=== PATIENT | female | born 1955 | race Caucasian/White ===

== ENCOUNTER → 2020-02-24 10:53 | Outpatient (CLI) | payer MEDICARE, SELFPAY ==
[2016-08-07 12:37] VITALS: BMI 25.0
--- NOTE | 2020-02-24 10:59 | RAD_ITS ---
STUDY: X-RAY - LUMBAR SPINE REASON FOR EXAM: Female, 65 years old. Back pain running down left leg, surgery x6 years ago. TECHNIQUE: 3 view(s) of the lumbar spine were obtained. COMPARISON: None FINDINGS: Normal lumbar lordosis. Mild dextro scoliosis of the lower lumbar spine. Status post transpedicular fixation at L5/S1 with 5 mm of anterolisthesis of L5 on S1. There is multilevel endplate spondylosis of the lumbar vertebrae. There is multi-level degenerative disc disease with multi-level disc space narrowing. The soft tissue structures are unremarkable. RAD/Lumbar Spine 2 or 3 Views IMPRESSION: 1. Status post transpedicular fixation at L5/S1 with 5 mm of anterolisthesis of L5 on S1. 2. Mild dextroscoliosis with degenerative disc disease.. Electronically Signed: Skyler Barbosa MD at 16:58 EST Tel , Service support ,
== END ==
PROVIDERS: Referring Provider Anesthesiology Pain Medicine; Visit Provider Anesthesiology Pain Medicine
DX: M54.9 Dorsalgia, unspecified (principal)
CPT/HCPCS: 72100

== ENCOUNTER → 2020-03-31 11:15 | Outpatient (CLI) | payer MEDICARE, SELFPAY ==
[2016-08-07 12:37] VITALS: BMI 25.0
[2020-03-31 13:07] LABS: Amphetamine Urine VISTA NEGATIVE (<1000 ng/mL); Barbiturate Urine VISTA NEGATIVE (< 200 ng/mL); Benzodiazepine Urine VISTA NEGATIVE (< 200 ng/mL); Cocaine Urine VISTA NEGATIVE (< 300 ng/mL); Ecstacy Urine VISTA NEGATIVE (< 500 ng/mL); Methadone Urine VISTA NEGATIVE (< 300 ng/mL); PCP Urine VISTA NEGATIVE (< 25 ng/mL); THC Urine VISTA NEGATIVE (< 50 ng/mL); Vista UDS pH Range 5
== END ==
PROVIDERS: PCP Family Medicine; Referring Provider Anesthesiology Pain Medicine; Visit Provider Anesthesiology Pain Medicine
DX: F11.20 Opioid dependence, uncomplicated (principal)
CPT/HCPCS: 80307

== ENCOUNTER → 2020-08-18 07:57 | Outpatient (CLI) | payer MEDICARE, SELFPAY ==
--- NOTE | 2020-08-18 08:02 | CT_ITS ---
STUDY: CT LUMBAR SPINE WITHOUT CONTRAST REASON FOR EXAM: Female, 65 years old. BACK AND LEG PAIN RADIATION DOSAGE (If Supplied By Facility): CTDIvol = ( 11.51 ) mGy, DLP = ( 265.53 ) mGycm TECHNIQUE: The patient was scanned in a multi detector CT scanner. High resolution transaxial imaging was performed. Images were obtained from L1 to S1 vertebral level. Sagittal and coronal images were reconstructed. Individualized dose optimization techniques were used for this CT. COMPARISON: None FINDINGS: Normal lumbar lordosis. There is no substantial scoliosis. Normal vertebrae of the lumbar spine. L1-2: Mild degree of anterior spondylosis. The disc spaces well maintained. L2-3: Moderate to marked degree of disc space narrowing. Spondylosis. Facet joint osteoarthritis and hypertrophy. Moderate degree of bilateral neural foraminal stenosis worse on the left side. Mild degree of central canal stenosis. Minimal retrolisthesis of L2 on L3. L3-4: Marked degree of disc space narrowing. Spondylosis. Mild degree of diffuse posterior disc bulge. No significant stenosis seen. L4-5: Minimal anterior listhesis of L4 on L5. L5-S1: The patient is status post laminectomy and interpedicular screw and eleazar fixation device. Minimal degree of anterior listhesis of L5 on S1. Normal visualized paraspinous soft tissue structures. CT/Spine Lumbar without Contrast IMPRESSION: Multilevel degenerative changes, as described above. Postoperative changes at the L5-S1 level. Electronically Signed: Adriano Interiano MD at 14:30 EDT , Service support ,
== END ==
PROVIDERS: PCP Family Medicine; Referring Provider Anesthesiology Pain Medicine; Visit Provider Anesthesiology Pain Medicine
DX: M54.5 Low back pain (principal); M54.16 Radiculopathy, lumbar region
CPT/HCPCS: 72131

== ENCOUNTER → 2020-11-05 11:34 | Outpatient (CLI) | payer MEDICARE, SELFPAY ==
[2020-10-12 14:07] VITALS: BMI 21.4
--- NOTE | 2020-11-05 11:36 | RAD_ITS ---
PROCEDURE: LUMBAR MYELOGRAM DATE OF EXAMINATION: 11/05/2020. INDICATION: Female, 65 years old. Increasing low back pain with radiation to the lower extremities. Prior laminectomy and fusion at the L5-S1 level. PHYSICIAN: Adriano Interiano M.D. CONSENT: The patient''s history and physical findings were reviewed. The lumbar myelogram procedure was discussed with the patient prior to signing a consent. SEDATION: Local anesthesia with 3 mL of 1% lidocaine was used. FLUOROSCOPY TIME (if supplied): (1:23) minutes/seconds. Injection Information: 10 cc of ISOVUE-M 200. Number of images obtained: 4 TECHNIQUE: Digital fluoroscopy was used to identify a safe approach for the lumbar myelogram. The back was prepped and draped in usual fashion. Local anesthesia was utilized. Under fluoroscopic guidance a 22-gauge spinal needle was inserted into the spinal canal at the L4-5 level. Clear spinal fluid was seen. 10 mL of Isovue 200 M was injected into the spinal canal. There is good opacification of the spinal fluid. The nerve root sheaths are asymmetrically identified. Extradural defects are seen at the L2-L3, L3-L4 and L4-L5 levels. Minimal retrolisthesis of L2 on L3 and L3 on L4. There is narrowing of the AP diameter of the canal. A spinal stimulator device is seen overlying the left lower aspect of the lumbar spine. Prior laminectomy and intrapedicle screw fixation at the L5-S1 level. A CT scan will follow. RAD/Lumbar Myelogram IMPRESSION: Successful lumbar myelogram with multilevel extradural defects as described. Electronically Signed: Adriano Interiano MD at 12:44 EDT , Service support ,
[2020-11-05 11:52] VITALS: BP 163/87; PULSE 69; RESP 14; TEMP 36.3; O2SAT 100; BMI 21.9
[2020-11-05] MEDS: Lidocaine 2% (5ml sdv) 5 ML VIAL.MPF (12:15)
--- NOTE | 2020-11-05 13:22 | CT_ITS ---
STUDY: CT LUMBAR SPINE WITH INTRATHECAL CONTRAST (LUMBAR CT MYELOGRAM) REASON FOR EXAM: Female, [address] LUMBAR MYELOGRAM RADIATION DOSAGE (If Supplied By Facility): CTDIvol = ( 11.88 ) mGy, DLP = ( 372.05 ) mGycm TECHNIQUE: Transaxial images were obtained from the L1 vertebra through the S1 vertebrae, following intrathecal administration of 10 ml of ISOVUE-M 200 contrast material, performed by Dr. Interiano. Please refer to this physicians technical notes for procedural details. Coronal and sagittal reconstructions were obtained. Individualized dose optimization techniques were used for this CT. COMPARISON: Comparison is made with prior examination dated 08/18/2020. FINDINGS: Normal lumbar lordosis. There is no substantial scoliosis. The TENS unit is seen. Normal vertebrae of the lumbar spine. There is dependent layering of contrast material in the distal thecal sac. The conus medullaris terminates in a normal position at the T12-L1 vertebral level. There is no demonstrated cauda equina nerve root abnormality or intraspinal mass. L1-2: Mild degree of anterior spondylolisthesis. The disc spaces well-maintained. No evidence of the spinal stenosis. No evidence of herniated nucleus pulposus. L2-3: Moderate to marked in degree of disc space narrowing. Minimal retrolisthesis of L2 on L3. Spondylosis. Mild degree of the diffuse posterior disc bulge. Minimal narrowing of the intervertebral foramina worse on the left side. L3-4: Mild degree of disc space narrowing. Anterior spondylosis. Facet joint hypertrophy. Mild degree of right neural foraminal stenosis. L4-5: Minimal anterior listhesis of L4 on L5. No significant disc space narrowing is seen. Mild with anterior spondylosis. L5-S1: Interpedicular screw fixation at the L5-S1 level. Laminectomy. Moderate degree of disc space narrowing. Normal visualized sacroiliac joints. Normal visualized paraspinous soft tissue structures. CT/Spine Lumbar WITH Contrast IMPRESSION: Multilevel disc space narrowing and degenerative changes as described. Prior laminectomy and fusion at the L5-S1 level. Electronically Signed: Adriano Interiano MD at 14:28 EDT , Service support ,
[2020-11-05 13:33] VITALS: BP 131/67; PULSE 73; RESP 14; O2SAT 99
== END | disposition home or self-care (01) ==
LOC: RAD 11:35
PROVIDERS: PCP Student in an Organized Health Care Education/Training Program; Referring Provider Orthopaedic Surgery; Visit Provider Orthopaedic Surgery
DX: M48.061 Spinal stenosis, lumbar region without neurogenic claudication (principal)
CPT/HCPCS: 62304; 72132; Q9967; A9575

== ENCOUNTER 2020-12-29 11:41 | Observation (INO) | payer MEDICARE, SELFPAY ==
--- NOTE | 2020-12-21 11:14 | EKG12_ITS ---
Test Reason : PRE OP Blood Pressure : / mmHG Vent. Rate : 068 BPM Atrial Rate : 068 BPM P-R Int : 148 ms QRS Dur : 072 ms QT Int : 370 ms P-R-T Axes : 072 060 066 degrees QTc Int : 393 ms Normal sinus rhythm Normal ECG Confirmed by CARMELO RIVERA, KARUNA ([id number]), supervising editor news reel JAIME NOVAK ([id number]) on 12/28/2020 12:35:22 PM Referred By: Cam Whalen Confirmed By:GISSELLE RHODES MD
[2020-12-21 12:37] LABS: Absolute Neutrophil Count 5.9 X10^3/uL (2.0-7.7); Basophil# 0.06 X10^3/uL; Basophil% 0.7 % (0-1); Eosinophil# 0.16 X10^3/uL; Eosinophils% 1.8 % (0-5); Hematocrit 42.4 % (37-47); Hemoglobin 13.9 g/dL (12.0-15.0); Lymphocyte % 23.4 % (19-41); Mean Corp Hgb Conc 32.8 g/dL (32-36); Mean Corpuscular Hgb 31.2 pg (27.0-32.0); Mean Corpuscular Volume 95.1 fL (81-99); Monocyte# 0.66 X10^3/uL; Monocyte% 7.4 % (0-10); NRBC Flagged by Analyzer 0 % (0-5); Neutrophil # 5.94 X10^3/uL (2.7-7.7); Neutrophil % 66.3 % (47-70); Platelet Count 428 K/mm3 (150-450); RBC Distribution Width CV 13.1 % (11.6-14.6); RBC Distribution Width SD 45.7 fl (35.1-43.9); Red Blood Count 4.46 M/mm3 (4.2-5.4)
[2020-12-21 12:49] LABS: Prothrombin Time (Protime)PT. 12.3 SECONDS (11.7-14.9)
[2020-12-21 12:50] LABS: Partial Thromboplast Time 28.9 Seconds (24.1-36.2)
[2020-12-21 13:01] LABS: Anion Gap 7 (5-15); BUN 13 mg/dL (7-18); BUN/Creat Ratio 15.6 RATIO (10-20); Calcium,Total 9.2 mg/dL (8.5-10.1); Chloride 105 mmol/L (98-107); Creatinine, Serum 0.83 mg/dL (0.55-1.02); EST Glomerular Filtration Rate 73 mL/min (>60); Est Glom Filt Rate - Afr Amer 88 mL/min (>60); Glucose 94 mg/dL (74-106); Potassium 3.6 mmol/L (3.5-5.1); Sodium Level 139 mmol/L (136-145)
[2020-12-21 13:03] LABS: AST(SGOT) 9 U/L (15-37); Alanine Aminotransfer ALT/SGPT 17 U/L (13-56); Albumin, Serum 3.5 g/dL (3.2-5.0); Alkaline Phosphatase 73 U/L (45-117); Globulin 3.6 g/dL (2.2-4.2); Magnesium 2.3 mg/dL (1.6-2.6); Protein, Total 7.1 g/dL (6.4-8.2)
[2020-12-21 13:39] LABS: HIV - WCH Non-Reactive (Nonreactive); Hepatitis B Surface Antibody Non-Reactive; Hepatitis C Antibody Non-Reactive (Nonreactive)
[2020-12-23 14:48] LABS: Hepatitis A AB, Total Positive (Negative)
--- NOTE | 2020-12-28 15:45 | PCM.HP.BLA ---
History and Physical Date of Admission: 12/29/20 [facility] [id number] [phone] OFFICE VISITDate of Service: 10/02/20 MR#:[id number]:[id number]: YNES FLORES #:[id number]:[id number] Provider:Dr. Cam Whalen DOAge/Sex: 65/F Location:[place]:Signed Intake Vital Signs 10/02/20 08:07 Height 5 ft 4 in Weight: 125 lb BMI 21.4 Intake Visit Reasons: Lumbar spine Accompanied by: Self Is patient in pain?: Yes Pain scale (1-10): 8 Allergies No Known Allergies Allergy (Verified 10/02/20 08:38) Medications lovastatin 40 mg tablet 40 mg PO DAILY tab 10/02/20 [History Confirmed 10/02/20] metoprolol succinate 25 mg tablet,extended release 24 hr 25 mg PO DAILY tab 10/02/20 [History Confirmed 10/02/20] nifedipine 30 mg tablet,extended release 24 hr 30 mg PO DAILY tab 10/02/20 [History Confirmed 10/02/20] oxycodone-acetaminophen 5 mg-325 mg tablet 1 tab PO Q6H PRN tab 10/02/20 [History Confirmed 10/02/20] ropinirole 0.25 mg tablet 0.25 mg PO DAILY 10/02/20 [History Confirmed 10/02/20] Post menopausal: Yes PFSH Medical History (Updated 10/02/20 @ 09:[address] Cam Whalen DO) HTN (hypertension) Hyperlipidemia Surgical History (Updated 10/02/20 @ 08:44 by Suzie Munroe) History of lumbar surgery Family History (Updated 10/02/20 @ 08:46 by Suzie Munroe) Other No family history of disorders Social History household members: children housing: house Smoking Status: Never smoker alcohol intake: never what type of physical activity do you participate in: none do you feel safe at home: Yes HPI Lumbar spine Details: Parts of this documentation were recorded by a scribe, this documentation accurately reflects the service provided and the decisions made by me, Dr. Cam Whalen DO 10/02/20 0806. YNES FLORES is a 65 year old F here today to establish as a new patient. C/o lumbar pain. Patient was referred by Dr. Schaefer for lumbar pain with radiculopathy. Onset: 2013. Patient had surgery in [place] by Dr. Ross, eleazar was placed in her lower back. Pain is across her lumbar with radiculopathy with her right leg. Patient had a stimulatory placed in 2015. Patient states she does not use it now. Patient moved to [place] last year. Reach, bend or lifting will cause shooting pains with either right or left leg. Patient voiced her radiculopathy always used to affected her left leg. However, now is with her right. Patient had done physical therapy in the past, however worsened her pain. Patient has done injections with Dr. Schaefer, however the last injection did not help. Denies any issues with bowel movements. Patient has tried the following conservative treatments for six weeks or greater: RICE, OTC NSAIDs, home exercises provided by a provider, corticosteroid injections and oral corticosteroids, narcotic and non-narcotic analgesic medication(s), PT/OT, interventional pain procedures and pain management techniques. Patient has found no relief and would like to further investigate their s/s. Therefore, will order a(n) [TEST/STUDY] to appropriately determine if [tx/sx] would be appropriate for the pa Ynes is a most pleasant young lady 65 years old has chief complaint of low back pain. She also has bilateral leg pain perhaps worse on the left. Her history is well described above. Overall the pain is usually a 7 or an 8 and when it is bad it is a 9. The dorsal column stimulator that was put in is a Medtronic unit. It did not help her. Incidentally she had left leg pain before the surgery and it did help her left leg pain. On examination she can stand her toes and she can stand on her heels without difficulty. She can forward bend very far without hardly any pain. She has a little pain with extension of her lumbar spine. She has 1+ patellar reflexes bilaterally and 1+ Achilles reflexes bilaterally. She has no long tract signs. Clonus is absent Babinski's are downgoing. She has no muscle atrophy. Plain x-rays of her back demonstrate the pedicle fixation at L5-S1. In addition she has degeneration of the disks above the fusion. I reviewed plain the CT scan that was done and these of course are always hard to read regarding up in particular stenosis is hard to tell what soft tissue is what. I told her that we would consider removal of the dorsal column stimulator however removal of the wires is another issue. That way she could have an MRI scan. In the end if we can get an MRI scan we will do a lumbar myelogram CT. I will see her again on Monday. I am going to discussed the case with Dr. Jesse Ruiz in [place] who is very experienced with Medtronic dorsal column stimulator's. ROS [employer] Reports system reviewed and no additional complaints, except as documented, Reports as per HPI, Reports back pain, Reports numbness, Reports radiating pain into limb, Reports stiffness and Reports tingling Neuro Yes numbness and Yes tingling Ortho Exam General General: Yes no acute distress and Yes well groomed Neurologic: Yes alert and Yes oriented x3 Psychologic: Yes reasonable and appropriate Coding Level of Care Code Off vis,new,level 3 Diagnoses History of lumbar surgery Z98.890 Spinal stenosis at L4-L5 level M48.061 Time Spent (min) 30 Assessment and Plan Assessment and Plan (1) History of lumbar surgery: Status: Acute Comment: [place] by Dr. Ross (2) Spinal stenosis at L4-L5 ramonita
[2020-12-29] VITALS (16 sets, daily range): BP systolic 92–143; BP diastolic 52–88; PULSE 61–80; RESP 16–18; TEMP 36.1–37.1; O2SAT 92–100; BMI 22.9
[2020-12-29] MEDS: Acetaminophen 500 MG Tablet 1000 MG PO (06:24)
[2020-12-29 06:25] LABS: Bedside Glucose 122 mg/dL (70-110)
[2020-12-29] MEDS: Lactated Ringers 1,000 ML 100 ML IV ×4 (06:43→21:38)
[2020-12-29] MEDS: Cefazolin 2 GM in 0.9% Normal Saline 100 ML IV (07:32)
[2020-12-29] MEDS: THROMBIN (RECOMBINANT) 20,000 UNIT VIAL 20000 UNIT TOPICAL (08:31)
--- NOTE | 2020-12-29 11:59 | OP.PCM_ITS ---
Report of Operation Date of Procedure: 12/29/20 Description of Surgical Findings:: Preoperative diagnosis: Severe left S1 radiculopathy secondary to scar tissue Postoperative diagnosis: The same Procedures: #1 repeat lumbar laminectomy L5-S1 on the left CPT code 95294 #2 removal of dorsal column stimulator generator CPT code 01433 Surgeon: Dr. Whalen clerical administrative assistant: Nava PONCE Anesthesia: General endotracheal anesthesia administered by [facility] EBL less than 100 cc Drains: None Complications: None Procedure: Patient was taken to the OR where she was placed under general endotracheal anesthesia a Rushing catheter was inserted. Neuro monitoring placed their leads and the patient. She was then moved onto the prone position on the Dmitriy frame. After proper positioning with care to protect her bony prominences her breasts her brachial plexus and ulnar nerves on both sides her cervical spine and facial features the back was prepped and draped standard fashion. First we simply removed the left-sided generator. Made an incision ov er the old incision open the cutaneous tissues over it and were able to pull it out of its capsule. We then took the extra wires and cut them. We then thoroughly irrigated followed by closure of the subcutaneous tissues with 2-0 Vicryl in interrupted fashion and the skin was approximated using skin clips. Our attention was then turned to the midline incision I made the incision directly over the old incision subcutaneous tissues were incised the length of the skin incision. I then opened the lumbar fascia in the midline went a little bit deeper with my cautery and then started skiving towards the left. This is to prevent intrusion into the dura of course. I then identified the eleazar and the upper pedicle screw. This was a good landmark for us obviously there was no need for x-rays. I then slowly began releasing soft tissue off of the bone using curettes this was a long and tedious process because she had a tremendous amount of scar tissue I continue to slowly carefully releasing off of the bone. This was followed by using 2 mm and 3 mm Kerrisons to start removing bone in the lateral recess also removed some scar tissue with it. The disc space was identified left alone. Once I removed quite a bit of bone off of the S1 I was able to easily find the foramen once the bone was removed the foramen was now open for the S1 nerve. I continued removing scar tissue and bone on the lateral side opening the lateral recess. We of course were not able to remove scar off of the dura as this would have been but not impossible. But at least it was not up against bone anymore. We felt that this completely freed up the S1 nerve root. Note that thorough irrigation was carried out every 10 or 15 minutes in the course of the case to prevent infection. At the end of the case we had excellent hemostasis and it was felt that we needed not to put in a drain. We placed an amnionic membrane directly over the exposed dura and nerve root and placed Gelfoam grafts over that. I then began closure. I closed the lumbar fascia using [id number] suture with #1 Vicryl for closure of subcutaneous tissues with 2-0 Vicryl in interrupted fashion and the skin was approximated using skin clips sterile dressings were applied over both incisions. The patient was then recovered in the OR she was moved to her gurney and taken to recovery in satisfactory condition. Is the end of operative summary on Ynes Silveira. This is Dr. Whalen dictating.
[2020-12-29] MEDS: Morphine 4 MG/ML Syringe IV ×2 (15:00→21:42)
--- NOTE | 2020-12-29 15:24 | PN.HOSP_ITS ---
Subjective Subjective Is a 65-year-old female who underwent an L5-S1 laminectomy with removal of spinal stimulator generator. Patient is complaining of pain in her back and does have chronic left lower extremity numbness that is been unchanged postoperatively. The hospitalist service was contacted for medical management during this patient's hospitalization. Patient's only question for me is if she can have her urinary catheter removed. Objective Data Objective Data Vital Signs: Vital Signs Temp Pulse Resp BP Pulse Ox 36.4 C L 62 16 111/62 97 12/29/20 14:40 12/29/20 14:40 12/29/20 14:40 12/29/20 14:40 12/29/20 14:40 Oxygen Flow Rate (L/min) 2 Oxygen Delivery Method Room Air Weight: 60.6 kg Body Mass Index (BMI) 22.9 Intake & Output: Intake and Output for Last 24 Hours 12/27/20 12/28/20 12/29/20 23:59 23:59 23:59 Intake Total 2213.5 / 2213.5 Output Total 1690 / 1690 Balance 523.5 / 523.5 Lab / Micro Data Result Diagrams: 12/21/20 11:34 12/21/20 11:34 Labs: Laboratory Results - last 24 hr 12/29/20 06:14: POC Glucose 122 H Micro: Microbiology 12/21/20 11:34 Swab (Method) Nasal Screen MRSA/MSSA - Final Physical Exam Const alert, no apparent distress and average body habitus Exam Limitations: no limitations Eyes PERRL Resp normal respiratory effort, no retractions, no use of accessory muscles and clear to auscultation bilaterally Cardio regular rate, regular rhythm, S1 normal heart sound and S2 normal heart sound GI normal to inspection, nondistended, normoactive bowel sounds, soft to palpation, non-tender and non-distended Neuro Sensorium / Orientation: awake and alert Assessment & Plan Assessment/Plan (1) S/P laminectomy: PLAN: 1. Hypertension * Controlled * Continue with metoprolol succinate and nifedipine 2. Hyperlipidemia * Continue with statin 3. Status post L5-S1 laminectomy * Management per neurosurgery * From medical standpoint, patient can have her Rushing catheter removed 4. VTE prophylaxis: Per the primary service. Thank you for the consult. The hospital service will follow but likely follow peripherally while patient in the hospital. Charges/Coding Visit Charges Inpatient E&M: 37279 Subs Hosp L2
[2020-12-29] MEDS: Cefazolin 1 GM/50 ML BAG IV ×2 (15:50→22:56)
[2020-12-29] MEDS: oxyCODONE 5 MG Tablet PO ×2 (16:54→23:04)
[2020-12-29] MEDS: diazePAM 5 MG Tablet PO (18:40)
[2020-12-29] MEDS: Zolpidem Tartrate 5 MG Tablet PO (21:44)
[2020-12-29] MEDS: Pantoprazole Sodium 40 MG Tablet PO (21:45)
[2020-12-29] MEDS: Senna/Docusate Sodium 1 Tablet 2 TABLET PO (21:46)
[2020-12-29] MEDS: NIFEdipine 30 MG Tablet PO (21:46)
[2020-12-29] MEDS: Metoprolol(XL)Succ 25 MG Tablet PO (21:46)
[2020-12-29] MEDS: Oxybutynin 5 MG Tablet PO (21:46)
[2020-12-29] MEDS: Pramipexole Di-HCl 0.125 MG Tablet PO (21:47)
[2020-12-29] MEDS: Atorvastatin Calcium 10 MG Tablet PO (21:47)
[2020-12-30 02:53] VITALS: BP 122/70; PULSE 70; RESP 18; TEMP 36.9; O2SAT 98
[2020-12-30] MEDS: diazePAM 5 MG Tablet PO ×3 (02:59→13:56)
[2020-12-30 06:55] VITALS: BP 113/71; PULSE 88; RESP 16; TEMP 36.9; O2SAT 94
[2020-12-30] MEDS: oxyCODONE 5 MG Tablet PO ×2 (07:06→10:59)
[2020-12-30 07:40] VITALS: O2SAT 97
[2020-12-30] MEDS: Pantoprazole Sodium 40 MG Tablet PO (09:24)
[2020-12-30] MEDS: Senna/Docusate Sodium 1 Tablet 2 TABLET PO (09:24)
--- NOTE | 2020-12-30 10:00 | CASEMGMT ---
Addendum entered by Orlando Grace 12/30/20 12:02: RN RAZIA to room. STRONG form explained re: Observation status for treatment of severe left S1 radiculopathy. Explained hospitalization will be paid per her insurance policy for Outpatient billing and condition will continue to be evaluated for Inpt necessity. Also let pt know that [facility] sends paper in the billing packet with their phone number if questions arise. Discussed Pharmacy section of STRONG form and self administered medication guideline. Pt verbalizes understanding and does not have further questions. Form signed, copy made and placed in chart, and original given to pt. Original Note: RN CM SOFTWARE SALES REPRESENTATIVE CM to room to meet with patient for initial transition planning/care coordination assessment. RN CM introduced self and role at [facility]. Pt voices understanding and consents to assessment at this time. Pt sitting up in chair in no distress at this time. Pt is A/O at this time and answers all questions appropriately. Care providers, pharmacy, and demographics verified/updated at this time. PCP: Dr Singleton Specialists: Dr Whalen--ortho, Dr Schaefer-pain mgmt Preferred Pharmacy: [facility] Retail Insurance:[facility] Prescription Benefit: Rx Living Will/HPOA: Pt does not currently have LW/HCPOA and declines info at this time. Pt made aware that she can contact as an out-pt and make appt in the future if she decides she would like to talk with someone about this or would like to utilize [facility] social work for advanced directive completion. LNOK: Dtr (Felicia Blanco) and Son Living Arrangements: Lives w/son in one-story home w/ramp entrance. Independent prior to surgery. Plans to discharge to her 's home initially. He lives in a one-story home w/no steps to enter. BF will help pt until pt's dtr returns to the area and will be able to assist w/any needs. Pt then plans to return to her own home and dtr will assist as needed. Transportation: Dtr will pick pt up @ d/c DME: Denies using any DME and denies needs. HHC/SNF: No hx of either. No needs identified. Pt wishes to return home/to her BF's home and states has no concerns with going home at time of discharge. CM to follow for any discharge planning/needs. Pt voices no concerns/needs at this time. Advised pt to ask for CM if any questions/concerns/needs arise. Voices understanding. PLAN: Home w/BF and family support and discharge plans in place. Mayela BANKS RN CM
[2020-12-30 11:00] VITALS: BP 115/65; PULSE 82; RESP 16; TEMP 36.7; O2SAT 95
--- NOTE | 2020-12-30 12:36 | PCM.DC ---
Discharge Instructions Follow Up Care Test Results: Test results from this visit will be discussed in further detail at your follow-up appointment, if applicable. Discharge Plan Admission Admit Date/Time: 12/29/20 11:41 Attending Provider: Servando Davis Primary Care Provider: Aleksandr Singleton Consulting Providers: Osman Cho Discharge Orders/Prescriptions Prescriptions: No Action lovastatin 40 mg tablet 40 mg PO QHS RF: 0 ropinirole [Requip] 0.25 mg tablet 0.25 mg PO QHS RF: 0 nifedipine 30 mg tablet extended release 24hr 30 mg PO QHS RF: 0 metoprolol succinate 25 mg tablet extended release 24 hr 25 mg PO QHS RF: 0 cyclobenzaprine 10 mg Tablet 10 mg PO QHS RF: 0 famotidine [Pepcid] 20 mg Tablet 20 mg PO QHS RF: 0 esomeprazole magnesium [Nexium] 40 mg Capsule,Delayed Release(Dr/Ec) 40 mg PO BID RF: 0 zolpidem [Ambien] 10 mg Tablet 10 mg PO QHS RF: 0 oxybutynin chloride 5 mg Tablet 5 mg PO QHS RF: 0 Referrals / Follow Up: Aleksandr Singleton DO [Primary Care Provider] - Disposition Disposition (needs filled in before D/C Order can be placed): Home, Self Care
--- NOTE | 2020-12-30 13:12 | PCM.DC.SUM ---
Providers Date of Admission: 12/29/20 Primary Care Physician: Dr. Aleksandr Singleton DO Consultations 12/29/20 11:59 Consult: Hospitalist Routine Consulting Provider: Osman Cho Reason for Consult: Medical Management EMERGENT Consult: No MD Notified: Yes Date Notified: 12/29/20 Time Notified: 14:39 Method of Notification: Text Reason For Visit: REPEAT LAMINECTOMY L5-S1,REMOVAL MEDTRONIC GENERAT Diagnosis Discharge Diagnosis (1) S/P laminectomy: Status: Acute Code(s): Z98.890 - Other specified postprocedural states Medications at Discharge Home Medications lovastatin 40 mg tablet 40 mg PO QHS tab 10/02/20 metoprolol succinate 25 mg tablet,extended release 24 hr 25 mg PO QHS tab 10/02/20 nifedipine 30 mg tablet,extended release 24 hr 30 mg PO QHS tab 10/02/20 ropinirole 0.25 mg tablet 0.25 mg PO QHS 10/02/20 cyclobenzaprine 10 mg PO QHS 12/18/20 esomeprazole magnesium [Nexium] 40 mg PO BID 12/18/20 famotidine [Pepcid] 20 mg PO QHS 12/18/20 oxybutynin chloride 5 mg PO QHS 12/18/20 zolpidem [Ambien] 10 mg PO QHS 12/18/20 oxycodone-acetaminophen 10 mg-325 mg tablet 1 tab PO Q6H PRN 10 Days #40 tab 12/30/20 Hospital Course Summary of Care Provided Hospital Course: This patient was admitted yesterday 29 December 2020 is being discharged today 30 December. The admitting diagnosis was severe left S1 radiculopathy. Discharge diagnoses are the same. The date of surgery she underwent repeat lumbar laminectomy foraminotomies L5-S1 on the left. Hospital course was unremarkable. She is up and walking about she states that her left leg pain is completely gone. Her back is sore of course. She was given post laminectomy protocol regarding her activities. She was told she could eat a regular diet now. She already has an appointment to return to my office. She was given Percocet 10 mg for pain. This is the end of discharge summary on Ynes Silveira. Weight / BMI Weight Weight: 133 lb 9.602 oz Body Mass Index (BMI) 22.9 ABG / Lab / Microbiology Data Result Diagrams: 12/21/20 11:34 12/21/20 11:34 Microbiology: Microbiology 12/21/20 11:34 Swab (Method) Nasal Screen MRSA/MSSA - Final Meaningful Use Info Meaningful Use Diagnoses (Choose all that apply): None applicable Discharge Plan Admission Admit Date/Time: 12/29/20 11:41 Attending Provider: Servando Davis Primary Care Provider: Aleksandr Singleton Consulting Providers: Osman Cho Discharge Orders/Prescriptions Prescriptions: No Action lovastatin 40 mg tablet 40 mg PO QHS RF: 0 ropinirole [Requip] 0.25 mg tablet 0.25 mg PO QHS RF: 0 nifedipine 30 mg tablet extended release 24hr 30 mg PO QHS RF: 0 metoprolol succinate 25 mg tablet extended release 24 hr 25 mg PO QHS RF: 0 cyclobenzaprine 10 mg Tablet 10 mg PO QHS RF: 0 famotidine [Pepcid] 20 mg Tablet 20 mg PO QHS RF: 0 esomeprazole magnesium [Nexium] 40 mg Capsule,Delayed Release(Dr/Ec) 40 mg PO BID RF: 0 zolpidem [Ambien] 10 mg Tablet 10 mg PO QHS RF: 0 oxybutynin chloride 5 mg Tablet 5 mg PO QHS RF: 0 oxycodone-acetaminophen 10-325 mg tablet 1 tab PO Q6H PRN (Reason: pain) 10 Days Qty: 40 RF: 0 Referrals / Follow Up: Aleksandr Singleton DO [Primary Care Provider] - Disposition Disposition (needs filled in before D/C Order can be placed): Home, Self Care
[2020-12-30 13:50] VITALS: BP 135/70; PULSE 89; RESP 16; TEMP 36.8; O2SAT 97
== END 2020-12-30 14:07 | disposition home or self-care (01) ==
LOC: SDC 13:27 → MS3 13:28
PROVIDERS: Anesthesiology; Admitting Provider Orthopaedic Surgery; PCP Student in an Organized Health Care Education/Training Program; Referring Provider Orthopaedic Surgery; Visit Provider Family Medicine
PROC: (CPT 63030; principal; 2020-12-29 07:00)
DX: M54.16 Radiculopathy, lumbar region (principal); E78.5 Hyperlipidemia, unspecified; I10 Essential (primary) hypertension; M48.061 Spinal stenosis, lumbar region without neurogenic claudication; Z23 Encounter for immunization; M19.90 Unspecified osteoarthritis, unspecified site; K21.9 Gastro-esophageal reflux disease without esophagitis; G25.81 Restless legs syndrome; R32 Unspecified urinary incontinence; Z86.2 Personal history of diseases of the blood and blood-forming organs and certain disorders involving the immune mechanism; Z79.899 Other long term (current) drug therapy; Z98.890 Other specified postprocedural states; Z87.891 Personal history of nicotine dependence; Z86.79 Personal history of other diseases of the circulatory system
CPT/HCPCS: 00670; 20670; 63042; 36415; 80048; 80076; 82962; 83735; 85025; 85610; 85730; 86703; 86706; 86708; 86803; 87081; 93005; 96361; 96365; 96366; 96375; 96376; 99218; G0008; J7120; 90686; G0378; J2405; J3475

== ENCOUNTER → 2021-02-25 10:49 | Outpatient (CLI) | payer MEDICARE, SELFPAY ==
[2021-02-25 11:56] LABS: Amphetamine Urine VISTA NEGATIVE (<1000 ng/mL); Barbiturate Urine VISTA NEGATIVE (< 200 ng/mL); Benzodiazepine Urine VISTA NEGATIVE (< 200 ng/mL); Cocaine Urine VISTA NEGATIVE (< 300 ng/mL); Ecstacy Urine VISTA NEGATIVE (< 500 ng/mL); Methadone Urine VISTA NEGATIVE (< 300 ng/mL); PCP Urine VISTA NEGATIVE (< 25 ng/mL); THC Urine VISTA NEGATIVE (< 50 ng/mL); Vista UDS pH Range 6
== END ==
PROVIDERS: PCP Student in an Organized Health Care Education/Training Program; Referring Provider Anesthesiology Pain Medicine; Visit Provider Anesthesiology Pain Medicine
DX: F11.20 Opioid dependence, uncomplicated (principal)
CPT/HCPCS: 80307

== ENCOUNTER → 2021-11-08 | Outpatient (CLI) | payer MEDICARE, SELFPAY ==
[2021-11-08 16:04] LABS: Amphetamine Urine VISTA NEGATIVE (<1000 ng/mL); Barbiturate Urine VISTA NEGATIVE (< 200 ng/mL); Benzodiazepine Urine VISTA NEGATIVE (< 200 ng/mL); Cocaine Urine VISTA NEGATIVE (< 300 ng/mL); Ecstacy Urine VISTA NEGATIVE (< 500 ng/mL); Methadone Urine VISTA NEGATIVE (< 300 ng/mL); PCP Urine VISTA NEGATIVE (< 25 ng/mL); THC Urine VISTA NEGATIVE (< 50 ng/mL); Vista UDS pH Range 5
== END | disposition home or self-care (01) ==
PROVIDERS: PCP Student in an Organized Health Care Education/Training Program; Visit Provider Anesthesiology Pain Medicine
DX: F11.20 Opioid dependence, uncomplicated (principal)
CPT/HCPCS: 80307

== ENCOUNTER → 2022-11-02 | Outpatient (CLI) | payer MEDICARE, SELFPAY ==
[2022-11-02 13:35] LABS: Amphetamine Urine VISTA NEGATIVE (<1000 ng/mL); Barbiturate Urine VISTA NEGATIVE (< 200 ng/mL); Benzodiazepine Urine VISTA NEGATIVE (< 200 ng/mL); Cocaine Urine VISTA NEGATIVE (< 300 ng/mL); Ecstacy Urine VISTA NEGATIVE (< 500 ng/mL); Methadone Urine VISTA NEGATIVE (< 300 ng/mL); PCP Urine VISTA NEGATIVE (< 25 ng/mL); THC Urine VISTA NEGATIVE (< 50 ng/mL); Vista UDS pH Range 5
== END | disposition home or self-care (01) ==
LOC: LAB 12:43
PROVIDERS: PCP Student in an Organized Health Care Education/Training Program; Referring Provider Anesthesiology Pain Medicine; Visit Provider Anesthesiology Pain Medicine
DX: F11.20 Opioid dependence, uncomplicated (principal)
CPT/HCPCS: 80307

== ENCOUNTER → 2024-05-20 | Outpatient (CLI) | payer MEDICARE, SELFPAY ==
[2024-05-20 14:00] LABS: Amphetamine Urine NEGATIVE (<1000 ng/mL); Barbiturate Urine NEGATIVE (< 200 ng/mL); Benzodiazepine Urine NEGATIVE (< 200 ng/mL); Buprenorphine Urine NEGATIVE (< 200 ng/mL); Cocaine Urine NEGATIVE (< 300 ng/mL); Fentanyl, Urine NEGATIVE; Methadone Urine NEGATIVE (< 300 ng/mL); Opiates Urine NEGATIVE (< 300 ng/mL); Oxycodone, Urine PRESUMTIVE POSITIVE (< 100 ng/mL); PCP Urine NEGATIVE (< 25 ng/mL); THC Urine NEGATIVE (< 50 ng/mL)
== END | disposition home or self-care (01) ==
PROVIDERS: PCP Student in an Organized Health Care Education/Training Program; Referring Provider Anesthesiology Pain Medicine; Visit Provider Anesthesiology Pain Medicine
DX: F11.20 Opioid dependence, uncomplicated (principal)
CPT/HCPCS: 80307

== ENCOUNTER 2024-06-27 09:00 | Outpatient (RCR) | payer MEDICARE, SELFPAY ==
[2024-06-20 08:17] VITALS: BP 143/80; PULSE 70; RESP 18; TEMP 36.9; BMI 24.3
--- NOTE | 2024-06-20 09:56 | PCM.WC.HP ---
History of Present Illness Date of Service: 06/20/24 Chief Complaint: Right hallux ulceration History of Wound: Patient is a 69-year-old female who presents to the wound care center today for plantar right hallux ulceration. She has PMHx of degenerative disc disease of the lumbar spine with spinal stenosis of L4-L5 with radiculopathy at S1 and is s/p laminectomy and SI joint arthrodesis, Hx of hip fracture secondary to her SI arthrodesis, HTN, PVD, Raynaud's disease, difficulty with ambulation. Patient states that ulceration has been present for roughly 7 weeks and started as a small little blister. She does follow with Dr. Singleton at [facility] [place] who referred her to the wound center following her vascular studies with Dr. Green. States that she has been dressing with antibiotic ointment and Band-Aid. She does state that the wound site is painful to touch. Denies trauma to the digit. Denies N/V/F/chills. Denies further complaints. [facility] Medical History (Updated 06/20/24 @ 10:[address] Aleksandr Martin, DPM) Wears dentures Arthritis Bladder disease Easy bruising Restless legs Injury of back Back pain History of Singh's esophagus Gastric reflux Former smoker Leg cramps History of pain when walking History of echocardiogram History of stress test History of irregular heartbeat Hyperlipidemia HTN (hypertension) Home Medications ?Medication ?Instructions ?Recorded ?Last Taken ?Type lovastatin 40 mg tablet 80 mg PO QHS 10/02/20 Unknown History metoprolol succinate 25 mg 25 mg PO QHS 10/02/20 Unknown History tablet,extended release 24 hr nifedipine 30 mg tablet,extended 30 mg PO QHS 10/02/20 Unknown History release 24 hr esomeprazole magnesium 40 mg 40 mg PO BID 12/18/20 12/29/20 04:00 History capsule,delayed release (Nexium) famotidine 20 mg tablet (Pepcid) 20 mg PO QHS 12/18/20 12/29/20 04:00 History zolpidem 10 mg tablet (Ambien) 10 mg PO QHS 12/18/20 Unknown History ropinirole 1 mg tablet 1 mg PO QHS 01/11/21 Unknown History oxycodone-acetaminophen 5 mg-325 1 tab PO Q4H pain 09/01/21 Unknown History mg tablet aspirin 81 mg tablet,delayed 81 mg PO DAILY 06/20/24 Unknown History release gabapentin 600 mg tablet 600 mg PO TID 06/20/24 Unknown History Allergy/AdvReac Type Severity Reaction Status Date / Time No Known Allergies Allergy Verified 09/01/21 11:09 Family History (Updated 10/02/20 @ 08:46 by Suzie Munroe) Other No family history of disorders Surgical History (Updated 12/29/20 @ 15:[address] Osman Cho, DO) Hx of colonoscopy History of esophagogastroduodenoscopy (EGD) History of suburethral sling procedure Hx of hysterectomy History of lumbar surgery Social History (Updated 10/02/20 @ 08:46 by Suzie Munroe) household members: children housing: house Smoking Status: Former smoker alcohol intake: never what type of physical activity do you participate in: none do you feel safe at home: Yes ROS Constitutional Constitutional: Denies anorexia, chills, fatigue or fever(s) Eyes Eyes: Denies blurry vision, change in vision or double vision ENT HEENT: Denies dysphagia, sinus pressure or sore throat Cardiovascular Cardiovascular: Denies chest pain, claudication or palpitations Respiratory/Chest Respiratory/Chest: Denies cough, shortness of breath at rest or wheezing Gastrointestinal Gastrointestinal: Denies abdominal pain, constipation, diarrhea, nausea or vomiting Genitourinary Genitourinary: Denies dysuria, hematuria or urinary urgency Musculoskeletal Musculoskeletal: Denies joint pain, joint stiffness or joint swelling Integumentary Integumentary: Denies jaundice, lesions, pruritus or rash Neurologic Neurologic: Denies dizziness or numbness Psychiatric Psychiatric: Denies anxiety or depression Endocrine Endocrinology: Denies cold intolerance, heat intolerance, polydipsia or polyuria Hematologic/Lymphatic Hematologic/Lymphatic: Denies easy bleeding or easy bruising Vital Signs Vital Signs Vital Signs: 06/20/24 08:17 Temperature 98.4 F Temperature Source Temporal Pulse Rate 70 Respiratory Rate 18 Blood Pressure 143/80 H Blood Pressure Mean 101 Blood Pressure Source Monitor Weight Weight: 64.436 kg Body Mass Index (BMI) 24.3 Physical Exam Const alert, oriented x3 and no apparent distress General Appearance: cooperative HEENT normocephalic Eyes General Eye: normal appearance of both eyes Neck General: normal visual inspection Lymph Lymphatic: no lymphadenopathy noted and no lymphedema noted Resp normal respiratory effort Cardio regular rate and regular rhythm Extremity no calf tenderness and no pedal edema Extremity Narrative: Right lower extremity: Vascular: DP and PT pulses palpable. CFT is less than 5 seconds to digits. Normal temperature gradient. Hair growth is diminished to the digit. Neurologic: Epicritic sensation is intact without focal deficit noted. Musculoskeletal: Muscle strength 5 of 5 age-appropriate. There is decreased range of motion of the ankle joint in dorsiflexion with the knee extended without pain or crepitus. Full range of motion with knee flexed. Decreased range of motion of the first MTPJ without pain or crepitus. Negative George sign, negative Mclaughlin sign. There is some pain to palpation about the ulcerative site. Dermatologic: There is some localized rubor of her digits consistent with trophic changes secondary to vascular disease. Ulceration is present to the plantar fat pad of the distal phalanx of the hallux with scant hyperkeratosis about the rim secondary to previous blister. Ulcerative base demonstrates mixed fibrogranular layer. No increased warmth about the ulcerative site, no purulent drainage, no malodor, no palpable fluctuance or bogginess noted. Skin no rashes or lesions noted and no jaundice Neuro moves all extremities Debridement Note Debridement Note Wound debrided: Right plantar hallux Laterality: Right Wound Grade/Stage: Kang stage I Type of Debridement: Excisional debridement Anesthesia Used: - (3 cc 1% lidocaine plain) Depth: Down to and including healthy tissue and in the subcutaneous layer Percentage of wound debrided: 100 Instrument Used: #15 blade Tissue Removed: Fibrous, devitalized subcutaneous, biofilm, slough Severity: Fat Layer Exposed Amount of bleeding with debridement: Mild Bleeding Controlled with: Compression and gauze Patient tolerated procedure: Patient tolerated procedure well Post-Debridement Measurements and Additional Note: Post-Debridement Measurements/Treatment MARLENY - Nurse 1 - General Ulcer Assessment Start: 06/20/24 08:15 Freq: Status: Active Protocol: SOPHIA Activity Type Activity Date Activity User E-sign Co-sign Detail Recorded Client Recorded Date Recorded By Document 06/20/24 08:17 DL [id number] 06/20/24 08:33 DL 06/20/24 08:17 - Today's Visit Information Type of service Initial Visit Arrival Mode Ambulatory Transfer Assistance None Patient Identification Verified (Name & Yes ) Patient Requires Transmission-Based No Precautions Safety Precautions NA Height and Weight Height 5 ft 4 in Weight 64.436 kg Weight in Pounds 142.1 lbs Weight Measurement Method Estimated by Patient Body Mass Index (BMI) 24.3 BMI Classification Normal Vital Signs Temperature (97.8 F-99.1 F) 98.4 F Temperature Source Temporal Pulse Rate (60-100) 70 Pulse Location Monitor Respiratory Rate (12-18) 18 Respiratory rate source Observation Blood Pressure (90/60-120/80) 143/80 H Blood Pressure Mean 101 Source Monitor Pain Scale: 0-10 Numeric Is Patient Pain Free? Yes Lower Extremity Assessment/ Foot Assessment/ Toe Nail Assessment Left -Posterior Tibial Palpable Yes -Dorsalis Pedis Palpable Yes -Extremity Color Normal -Hair Growth on Legs No -Hair Growth on Toes No -Temperature of Extremity Warm -Capillary Refill Less than 3 Seconds -Dependent Rubor No -Blanched when Elevated No -Lipodermatosclerosis No -Other Deformity No -Prior Foot Ulcer No -Charcot Joint No -Prior Amputation No -Thick Yes -Discolored Yes -Deformed No -Improper Length & Hygeine No Right -Posterior Tibial Palpable No -Dorsalis Pedis Palpable Yes -Extremity Color Normal -Hair Growth on Legs No -Hair Growth on Toes No -Temperature of Extremity Warm -Capillary Refill Less than 3 Seconds -Dependent Rubor No -Blanched when Elevated No -Lipodermatosclerosis No -Other Deformity No -Prior Foot Ulcer No -Charcot Joint No -Prior Amputation No -Thick Yes -Discolored Yes -Deformed No -Improper Length & Hygeine No Neuropathy Assessment Feet - Top Side and Bottom <Entered> (a) Teaching Assessment Preferences Verbal,Written, Demonstration Barriers to Learning None Readiness To Learn Good Willingness to Engage in Self Management Med Activies Readiness to Engage in Self Management Med Activities Anxiety Level Calm Cooperation Cooperative Perception Coherent Interest in Health Problem Asks Questions Education Importance Acknowledges Need Does Patient Smoke tobacco or other Yes substances Smoking Status Former smoker Is Patient Diabetic No Functional Assessment Recent Decline in Ability to Perform Denies Any Declines Culture/Denominational/Conveyor Operator Cultural/Denominational Needs that may affect No Treatment Plan Would you allow our hospital final assembly inspector to No meet you for the purpose of spiritual/ emotional support? Conveyor Operator to contact place of cheondoism No Teaching: Wound Center *Welcome to the Wound Center -Person Taught Patient (a) 1 - _ WC - Nurse 1 - General Ulcer Measurement Start: 04/03/25 08:15 Freq: Status: Active Protocol: Activity Type Activity Date Activity User E-sign Co-sign Detail Recorded Client Recorded Date Recorded By Document 06/20/24 08:17 [id number] 06/20/24 08:33 DL 06/20/24 08:17 Wound Center Nurse 1 #1 R Grt Toe -Current Size (cm) - Length 0.1 -Current Size (cm) - Width 0.1 -Current Size (cm) - Depth 0.1 -Total Square Cm 0.01 -Photo Taken Yes -Classification - Thickness Unclassifiable (Eschar Covered ) -Exudate Amt None Present -Wound Margin Thickened -Granulation Amt None Present (0 %) -Necrosis Amt Large (67-100%) -Necrotic Tissue Type Eschar -Structure Exposed N/A -Texture (Ayesha-wound Skin Appearance) Callus -Moisture (Ayesha-wound Skin Appearance) Dry/Scaly -Color (Ayesha-wound Skin Appearance) No Abnormality -Temperature (Ayesha-wound Skin No Abnormality Appearance) (Pt Warm) -Tenderness on Palpation (Ayesha-wound No Skin Appearance) -Ulcer Cleansing Soap and Water -Foul Odor after Cleansing No -Anesthetic Used 5% Lidocaine Gel WC - Nurse 2 - General Ulcer CM Notes Start: 06/20/24 08:15 Freq: Status: Active Protocol: Activity Type Activity Date Activity User E-sign Co-sign Detail Recorded Client Recorded Date Recorded By Document 06/20/24 08:50 [facility] [id number] 06/20/24 09:05 [facility] 06/20/24 08:50 Wound Center Nurse 2 -Time 08:50 -Correct Patient Yes -Correct Side, Site, Position Yes -Correct Procedure Yes -Procedure Performed Yes -Type of Procedure Debridement -Clinical Debridement Subcutaneous -Tissue Removed Subcutaneous -Post Debridement (cm) - Length 1 -Post Debridement (cm) - Width 1 -Post Debridement (cm) - Depth 0.1 -Total Square (Post) (cm) 1 -Area of Debridement (cm) - Length 1 -Area of Debridement (cm) - Width 1 -Total Square (Area) (cm) 1 -Tunneling No -Undermining/Tunneling No -Circular Undermining No -Wound/Ulcer Outcome Not Healed -Ulcer Cleansing Rinsed/ Irrigated with Saline -Foul Odor after Cleansing No -Bioengineered Tissue No -Injectable Lidocaine w/ Epi (%) 1 -Injectable Lidocaine w/ Epi (mls) 2 -Bleeding Controlled with Pressure -Treatment Response Procedure Tolerated Well -Debridement - Subq, 1st 20sq cm Yes Pain Scale: 0-10 Numeric Is Patient Pain Free? Yes - Nurse 3 - General Ulcer D/C NN Start: 06/20/24 08:15 Freq: Status: Active Protocol: Activity Type Activity Date Activity User E-sign Co-sign Detail Recorded Client Recorded Date Recorded By Document 06/20/24 09:16 DL [id number] 06/20/24 09:17 DL 06/20/24 09:16 Wound Care Center Nurse 3 #1 R Grt Toe -Ulcer Cleansing Rinsed/ Irrigated with Saline -Foul Odor after Cleansing No -Primary Dressing Applied Promogran Jessica Matter -Other Dressing COBAN -Promogran Jessica Matter 1 Treatment Response Procedure Tolerated Well Pain Scale: 0-10 Numeric Is Patient Pain Free? Yes WC - Visit Discharge Discharge Condition Stable Ambulatory Status Ambulatory Transportation Private Auto Assessment/Plan Assessment/Plan (1) Non-pressure chronic ulcer of other part of right foot with fat layer exposed: CODE(S): L97.512 - Non-pressure chronic ulcer of other part of right foot with fat layer exposed (2) Acquired hallux limitus of right foot: CODE(S): M20.5X1 - Other deformities of toe(s) (acquired), right foot (3) Other specified peripheral vascular diseases: CODE(S): I73.89 - Other specified peripheral vascular diseases PLAN: Plan Patient seen and evaluated Predebridement measurement: 0.9 cm x 0.9 cm x 0.1 cm Ulceration underwent debridement as noted in the clinical panel above. Postdebridement measurement 1.0 cm x 1.0 cm x 0.1 cm. Jessica was applied to the wound bed and dressed with 2 x 2 gauze and Coban. She was instructed to change the dressing daily. She did undergo LEAS at [facility] with Dr. Green on 05/13/2024 and demonstrate: Right lower extremity NEGRITA 1.27, TBI 0.6; left lower extremity NEGRITA 1.23, TBI 0.46. I did discuss these in detail with her and have stated she has mild arterial disease in the digits of the right foot with severe arterial disease in the digits of the left foot. I did discuss with her risks and complications of healing secondary to her vascular status. She was urged to continue to wear shoe gear at all times and is understanding to watch for any cuts, scrapes, or wounds to her digits. Discussed continued follow with Dr. Green for her PVD. Discussed continued diet consisting of protein to aid in wound healing. Bj supplementation was also recommended in addition to boost/Ensure. The following work up and care recommendations were made: Dressing: Jessica, 2 x 2 gauze, Coban. Change dressing daily Wash: Soap and water Tissue growth optimization: Jessica Offload: Dressing to provide some offloading but to ensure to wear proper fitting shoe gear at all times for protection. Vascular: Does have mild arterial disease of the digits of the right foot and severe arterial disease digits left foot. See above LEAS. Edema: None Infection: No signs of infection Pain: There is pain about the ulcerative site secondary to ischemic pain may continue to take [id number] Tylenol extra strength for discomfort. Will continue following with Dr. Green Host factors: PVD and hallux limitus complicate healing status. I answered all the patient's questions. To return to the wound healing center in 1 week or call sooner if the patient has any questions or concerns.
--- NOTE | 2024-06-21 10:32 | WC ---
PHOTO 06/20/24 RIGHT GREAT TOE
[2024-06-27 09:12] VITALS: BP 141/70; PULSE 71; RESP 16; TEMP 36.3; BMI 24.3
--- NOTE | 2024-06-27 10:34 | PCM.WC.PN ---
History of Present Illness Date of Service: 06/27/24 Chief Complaint: Right hallux ulceration History of Wound: Patient is a 69-year-old female who presents to the wound care center today for plantar right hallux ulceration. She has PMHx of degenerative disc disease of the lumbar spine with spinal stenosis of L4-L5 with radiculopathy at S1 and is s/p laminectomy and SI joint arthrodesis, Hx of hip fracture secondary to her SI arthrodesis, HTN, PVD, Raynaud's disease, difficulty with ambulation. Patient states that ulceration has been present for roughly 7 weeks and started as a small little blister. She does follow with Dr. Singleton at [facility] who referred her to the wound center following her vascular studies with Dr. Green. States that she has been dressing with antibiotic ointment and Band-Aid. She does state that the wound site is painful to touch. Denies trauma to the digit. Denies N/V/F/chills. Denies further complaints. Subjective Subjective This is a 69-year-old female who presents today to the wound care center for continued care of plantar right hallux ulceration. She continues to change dressing daily as instructed. Does note improvement in the ulceration site. Denies constitutional symptoms. Denies further complaints. Objective Data Objective Data Vital Signs: Vital Signs Temp Pulse Resp BP O2 Del Method 97.3 F L 71 16 141/70 H Room Air 06/27/24 09:12 06/27/24 09:12 06/27/24 09:12 06/27/24 09:12 06/27/24 09:12 Oxygen Delivery Method Room Air Weight: 64.436 kg Body Mass Index (BMI) 24.3 Physical Exam Const alert, oriented x3 and no apparent distress General Appearance: cooperative HEENT normocephalic Eyes General Eye: normal appearance of both eyes Neck General: normal visual inspection Lymph Lymphatic: no lymphadenopathy noted and no lymphedema noted Resp normal respiratory effort Cardio regular rate and regular rhythm Extremity no calf tenderness and no pedal edema Extremity Narrative: Right lower extremity: Vascular: DP and PT pulses palpable. CFT is less than 5 seconds to digits. Normal temperature gradient. Hair growth is diminished to the digit. Neurologic: Epicritic sensation is intact without focal deficit noted. Musculoskeletal: Muscle strength 5 of 5 age-appropriate. There is decreased range of motion of the ankle joint in dorsiflexion with the knee extended without pain or crepitus. Full range of motion with knee flexed. Decreased range of motion of the first MTPJ without pain or crepitus. Negative George sign, negative Mclaughlin sign. There is some pain to palpation about the ulcerative site. Dermatologic: There is some localized rubor of her digits consistent with trophic changes secondary to vascular disease. Ulceration is present to the plantar fat pad of the distal phalanx of the hallux with scant hyperkeratosis about the rim secondary to previous blister. Ulcerative base demonstrates mixed fibrogranular layer. No increased warmth about the ulcerative site, no purulent drainage, no malodor, no palpable fluctuance or bogginess noted. Skin no rashes or lesions noted and no jaundice Neuro moves all extremities Debridement Note Debridement Note Wound debrided: Right plantar hallux Laterality: Right Wound Grade/Stage: Kang stage I Type of Debridement: Excisional debridement Anesthesia Used: - (3 cc 1% lidocaine plain) Depth: in the subcutaneous layer Percentage of wound debrided: 100 Instrument Used: 3mm curette Tissue Removed: Fibrous, devitalized subcutaneous, biofilm, slough Severity: Fat Layer Exposed Amount of bleeding with debridement: Mild Bleeding Controlled with: Compression and gauze Patient tolerated procedure: Patient tolerated procedure well Post-Debridement Measurements and Additional Note: Post-Debridement Measurements/Treatment - Nurse 1 - General Ulcer Assessment Start: 06/20/24 08:15 Freq: Status: Active Protocol: [email or web address].LOWEXT Activity Type Activity Date Activity User E-sign Co-sign Detail Recorded Client Recorded Date Recorded By Document 06/20/24 08:17 DL [id number] 06/20/24 08:33 DL Document 06/27/24 09:12 KW [id number] 06/27/24 09:17 KW 06/20/24 06/27/24 08:17 09:12 - Today's Visit Information Type of service Initial Visit Follow-up Visit (Physician/VETERINARY DENTIST ) Arrival Mode Ambulatory Ambulatory Transfer Assistance None Patient Identification Verified (Name & Yes Yes ) Patient Requires Transmission-Based No Precautions Safety Precautions NA Height and Weight Height 5 ft 4 in Weight 64.436 kg Weight in Pounds 142.1 lbs Weight Measurement Method Estimated by Patient Body Mass Index (BMI) 24.3 24.3 BMI Classification Normal Normal Vital Signs Temperature (97.8 F-99.1 F) 98.4 F 97.3 F L Temperature Source Temporal Temporal Pulse Rate (60-100) 70 71 Pulse Location Monitor Monitor Respiratory Rate (12-18) 18 16 Respiratory rate source Observation Observation Oxygen Delivery Method Room Air Blood Pressure (90/60-120/80) 143/80 H 141/70 H Blood Pressure Mean (mm Hg) 101 93 Source Monitor Monitor Position Semi-Fowlers Blood Pressure Location Left Arm History Since Last Visit- (Skip if this is Patient's initial visit) Have you changed medications since your No last visit? Any new allergies or adverse reactions No Had a fall/change in ADL's that may No increase risk of falls Signs or symptoms of abuse and/or No neglect since last visit Have you been in the hospital since your No last visit? Has dressing in place as prescribed Yes Has compression in place as prescribed N/A Has offloadiing in place as prescribed N/A Experienced any changes in pain level or No management Left Footwear Regular Shoe Right Footwear Regular Shoe Pain Scale: 0-10 Numeric Is Patient Pain Free? Yes Yes Lower Extremity Assessment/ Foot Assessment/ Toe Nail Assessment Left -Posterior Tibial Palpable Yes -Dorsalis Pedis Palpable Yes -Extremity Color Normal -Hair Growth on Legs No -Hair Growth on Toes No -Temperature of Extremity Warm -Capillary Refill Less than 3 Seconds -Dependent Rubor No -Blanched when Elevated No -Lipodermatosclerosis No -Other Deformity No -Prior Foot Ulcer No -Charcot Joint No -Prior Amputation No -Thick Yes -Discolored Yes -Deformed No -Improper Length & Hygeine No Right -Posterior Tibial Palpable No -Dorsalis Pedis Palpable Yes -Extremity Color Normal -Hair Growth on Legs No -Hair Growth on Toes No -Temperature of Extremity Warm -Capillary Refill Less than 3 Seconds -Dependent Rubor No -Blanched when Elevated No -Lipodermatosclerosis No -Other Deformity No -Prior Foot Ulcer No -Charcot Joint No -Prior Amputation No -Thick Yes -Discolored Yes -Deformed No -Improper Length & Hygeine No Neuropathy Assessment Feet - Top Side and Bottom <Entered> (a) Teaching Assessment Preferences Verbal,Written, Demonstration Barriers to Learning None Readiness To Learn Good Willingness to Engage in Self Management Med Activies Readiness to Engage in Self Management Med Activities Anxiety Level Calm Cooperation Cooperative Perception Coherent Interest in Health Problem Asks Questions Education Importance Acknowledges Need Does Patient Smoke tobacco or other Yes substances Smoking Status Former smoker Is Patient Diabetic No Functional Assessment Recent Decline in Ability to Perform Denies Any Declines Culture/Congregational/Technician Test Systems Cultural/Congregational Needs that may affect No Treatment Plan Would you allow our hospital alemite operator to No meet you for the purpose of spiritual/ emotional support? Technician Test Systems to contact place of spiritism No Teaching: Wound Center *Welcome to the Wound Center -Person Taught Patient (a) 1 - _ WC - Nurse 1 - General Ulcer Measurement Start: 06/20/24 08:15 Freq: Status: Active Protocol: Activity Type Activity Date Activity User E-sign Co-sign Detail Recorded Client Recorded Date Recorded By Document 06/20/24 08:17 DL [id number] 06/20/24 08:33 DL Document 06/27/24 09:12 KW [id number] 06/27/24 09:17 KW 06/20/24 06/27/24 08:17 09:12 Wound Center Nurse 1 #1 R Grt Toe -Current Size (cm) - Length 0.1 0.1 -Current Size (cm) - Width 0.1 0.1 -Current Size (cm) - Depth 0.1 0 -Total Square Cm 0.01 0.01 -Date of Last Picture (Recall this 06/27/24 field) -Photo Taken Yes -Classification - Thickness Unclassifiable (Eschar Covered ) -Exudate Amt None Present None Present -Wound Margin Thickened Distinct, Outline Attached -Granulation Amt None Present (0 None Present (0 %) %) -Necrosis Amt Large (67-100%) Large (67-100%) -Necrotic Tissue Type Eschar Eschar -Structure Exposed N/A -Texture (Ayesha-wound Skin Appearance) Callus Assessed -Moisture (Ayesha-wound Skin Appearance) Dry/Scaly Assessed,Dry/ Scaly -Color (Ayesha-wound Skin Appearance) No Abnormality Assessed -Temperature (Ayesha-wound Skin No Abnormality No Abnormality Appearance) (Pt Warm) (Pt Warm) -Tenderness on Palpation (Ayesha-wound No No Skin Appearance) -Ulcer Cleansing Soap and Water Rinsed/ Irrigated with Saline -Foul Odor after Cleansing No No -Anesthetic Used 5% Lidocaine 5% Lidocaine Gel Gel -Wound Comment(s) scabbed WC - Nurse 2 - General Ulcer CM Notes Start: 06/20/24 08:15 Freq: Status: Active Protocol: Activity Type Activity Date Activity User E-sign Co-sign Detail Recorded Client Recorded Date Recorded By Document 06/20/24 08:50 [facility] [id number] 06/20/24 09:05 [facility] Document 06/27/24 09:23 [facility] [id number] 06/27/24 09:38 [facility] 06/20/24 06/27/24 08:50 09:23 Wound Center Nurse 2 #1 R Grt Toe -Time 08:50 09:23 -Correct Patient Yes Yes -Correct Side, Site, Position Yes Yes -Correct Procedure Yes Yes -Procedure Performed Yes Yes -Type of Procedure Debridement Debridement -Clinical Debridement Subcutaneous Subcutaneous -Tissue Removed Subcutaneous Subcutaneous -Post Debridement (cm) - Length 1 0.9 -Post Debridement (cm) - Width 1 0.7 -Post Debridement (cm) - Depth 0.1 0.1 -Total Square (Post) (cm) 1 0.63 -Area of Debridement (cm) - Length 1 0.9 -Area of Debridement (cm) - Width 1 0.7 -Total Square (Area) (cm) 1 0.63 -Tunneling No No -Undermining/Tunneling No No -Circular Undermining No No -Wound/Ulcer Outcome Not Healed Not Healed -Ulcer Cleansing Rinsed/ Rinsed/ Irrigated with Irrigated with Saline Saline -Foul Odor after Cleansing No No -Bioengineered Tissue No No -Injectable Lidocaine w/ Epi (%) 1 1 -Injectable Lidocaine w/ Epi (mls) 2 1 -Bleeding Controlled with Pressure Pressure -Treatment Response Procedure Procedure Tolerated Well Tolerated Well -Debridement - Subq, 1st 20sq cm Yes Yes Pain Scale: 0-10 Numeric Is Patient Pain Free? Yes Yes WC - Nurse 3 - General Ulcer D/C NN Start: 06/20/24 08:15 Freq: Status: Active Protocol: Activity Type Activity Date Activity User E-sign Co-sign Detail Recorded Client Recorded Date Recorded By Document 06/20/24 09:16 DL [id number] 06/20/24 09:17 DL Document 06/27/24 09:45 DL [id number] 06/27/24 09:46 DL 06/20/24 06/27/24 09:16 09:45 Wound Care Center Nurse 3 #1 R Grt Toe -Ulcer Cleansing Rinsed/ Rinsed/ Irrigated with Irrigated with Saline Saline -Foul Odor after Cleansing No No -Primary Dressing Applied Promogran Promogran Jessica Matter Jessica Matter -Other Dressing COBAN -Primary Dressing Covered/Secured with Dry Gauze, Secured with Tape -Promogran Jessica Matter 1 1 Treatment Response Procedure Procedure Tolerated Well Tolerated Well Pain Scale: 0-10 Numeric Is Patient Pain Free? Yes Yes WC - Visit Discharge Discharge Condition Stable Stable Ambulatory Status Ambulatory Ambulatory Transportation Private Auto Private Auto Assessment/Plan Assessment/Plan (1) Non-pressure chronic ulcer of other part of right foot with fat layer exposed: CODE(S): L97.512 - Non-pressure chronic ulcer of other part of right foot with fat layer exposed (2) Acquired hallux limitus of right foot: CODE(S): M20.5X1 - Other deformities of toe(s) (acquired), right foot (3) Other specified peripheral vascular diseases: CODE(S): I73.89 - Other specified peripheral vascular diseases PLAN: Plan Patient seen and evaluated Predebridement measurement: 0.8 cm x 0.7 cm x 0.1 cm Ulceration underwent debridement as noted in the clinical panel above. Postdebridement measurement 0.9 cm x 0.7 cm x 0.1 cm. Jessica was applied to the wound bed and dressed with 2 x 2 gauze and Coban. She was instructed to change the dressing daily. She did undergo LEAS at [facility] with Dr. Green on 05/13/2024 and demonstrate: Right lower extremity NEGRITA 1.27, TBI 0.6; left lower extremity NEGRITA 1.23, TBI 0.46. I did discuss these in detail with her and have stated she has mild arterial disease in the digits of the right foot with severe arterial disease in the digits of the left foot. I did discuss with her risks and complications of healing secondary to her vascular status. She was urged to continue to wear shoe gear at all times and is understanding to watch for any cuts, scrapes, or wounds to her digits. Discussed continued follow with Dr. Green for her PVD. Discussed continued diet consisting of protein to aid in wound healing. Bj supplementation was also recommended in addition to boost/Ensure. The following work up and care recommendations were made: Dressing: Jessica, 2 x 2 gauze, Coban. Change dressing daily Wash: Soap and water Tissue growth optimization: Jessica Offload: Dressing to provide some offloading but to ensure to wear proper fitting shoe gear at all times for protection. Vascular: Does have mild arterial disease of the digits of the right foot and severe arterial disease digits left foot. See above LEAS. Edema: None Infection: No signs of infection Pain: There is pain about the ulcerative site secondary to ischemic pain may continue to take [id number] Tylenol extra strength for discomfort. Will continue following with Dr. Green Host factors: PVD and hallux limitus complicate healing status. I answered all the patient's questions. To return to the wound healing center in 1 week or call sooner if the patient has any questions or concerns.
--- NOTE | 2024-07-01 14:16 | WC ---
PHOTO 06/27/24 RIGHT GREAT TOE PLANTAR
== END 2024-07-17 23:59 | disposition home or self-care (01) ==
LOC: WC 09:00
PROVIDERS: PCP Student in an Organized Health Care Education/Training Program; Referring Provider Student in an Organized Health Care Education/Training Program; Visit Provider Student in an Organized Health Care Education/Training Program
DX: I73.89 Other specified peripheral vascular diseases (principal); L97.512 Non-pressure chronic ulcer of other part of right foot with fat layer exposed; M48.061 Spinal stenosis, lumbar region without neurogenic claudication; I10 Essential (primary) hypertension; Z98.1 Arthrodesis status; Z87.891 Personal history of nicotine dependence; E78.5 Hyperlipidemia, unspecified; K21.9 Gastro-esophageal reflux disease without esophagitis; Z79.899 Other long term (current) drug therapy; Z79.82 Long term (current) use of aspirin; M20.5X1 Other deformities of toe(s) (acquired), right foot
CPT/HCPCS: 11042; 99213; G0463